=== PATIENT | male | born 2000 | race African-American/Black ===

== ENCOUNTER 2022-12-31 13:24 | Emergency (ER) | payer OTHER ==
[~2022-12-31] VITALS: Ht 193 cm; Wt 100.0 kg
[2022-12-31] MEDS ORDERED: LORAZEPAM 2MG/ML CPJ IM ONE (14:00)
[2022-12-31] MEDS ORDERED: HALOPERIDOL LACTATE 5MG/ML VIAL IM ONE (14:00)
[2022-12-31 16:04] LABS: BASOPHILS % 1.1 % (0.0-2.0); EOSINOPHILS % 1.3 % (0.0-5.0); HEMATOCRIT. 44.3 % (42.0-52.0); HEMOGLOBIN. 15.1 g/dL (14.0-18.0); LYMPHOCYTES % 26.2 % (20.0-50.0); MEAN CORPUSCULAR HEMOGLOBIN 29.4 pg (28.0-32.0); MEAN CORPUSCULAR VOLUME 86.2 fL (80.0-94.0); MEAN PLATELET VOLUME 9.2 fl (7.4-10.4); MONOCYTES % 10.9 % (2.0-8.0); NEUTROPHILS % 60.5 % (40.0-76.0); PLATELET 180 x1000/uL (130-400); RED BLOOD CELL COUNT 5.14 mill/uL (4.7-6.1); RED CELL DISTRIBUTION WIDTH 14.2 % (11.6-14.6)
[2022-12-31 16:14] LABS: CHLORIDE 102 mEq/L (98-107)
[2022-12-31 16:29] LABS: ETHANOL BLOOD < 10 mg/dL
[2023-01-01 01:24] LABS: CLARITY URINE TURBID (CLEAR); COLOR URINE YELLOW (YELLOW); KETONES URINE NEGATIVE (NEGATIVE); LEUKOCYTE ESTERASE URINE TRACE (NEGATIVE); NITRITE URINE NEGATIVE (NEGATIVE); OCCULT BLOOD URINE NEGATIVE (NEGATIVE); PROTEIN URINE NEGATIVE (NEGATIVE)
[2023-01-01 02:36] LABS: *AMPHETAMINES SCREEN URINE NEGATIVE (NEGATIVE); *BARBITURATES SCREEN URINE NEGATIVE (NEGATIVE); *BENZODIAZEPINES SCREEN URINE NEGATIVE (NEGATIVE); *COCAINE SCREEN URINE NEGATIVE (NEGATIVE); CANNABINOID URINE SCREEN NEGATIVE (NEGATIVE); METHADONE URINE SCREEN NEGATIVE (NEGATIVE); OPIATES URINE SCREEN NEGATIVE (NEGATIVE); PHENCYCLIDINE URINE SCREEN NEGATIVE (NEGATIVE)
[2023-01-01] MEDS ORDERED: OLANZAPINE 10 MG/VIAL IM ONE ×3 (04:15→20:30)
[2023-01-01] MEDS ORDERED: LORAZEPAM 2MG/ML CPJ IM STA (12:36)
[2023-01-02] MEDS ORDERED: OLANZAPINE 10 MG/VIAL IM ONE ×2 (05:15→08:45)
[2023-01-02] MEDS ORDERED: LORAZEPAM 2MG/ML CPJ IM STA (08:42)
[2023-01-02] MEDS ORDERED: HALOPERIDOL LACTATE 5MG/ML VIAL IM ONE (15:45)
[2023-01-02] MEDS ORDERED: LORAZEPAM 2MG/ML CPJ IM ONE (15:45)
[2023-01-02] MEDS ORDERED: OLANZAPINE 5MG TABLET ODT PO SCH (17:00)
[2023-01-02] MEDS ORDERED: ZIPRASIDONE MESYLATE 20MG/VIAL IM ONE (19:00)
[2023-01-02 22:30] VITALS: BP 130/70
== END 2023-01-03 00:28 ==
LOC: ER 13:24
DX: F29 Unspecified psychosis not due to a substance or known physiological condition (principal); Z20.822 Contact with and (suspected) exposure to COVID-19
CPT/HCPCS: 36415; 80053; 80305; 80307; 80320; 80329; 81003; 82962; 85025; 87426; 96372; 99285; C9803; J1630; J2060; J3486; J3490; Z7610; G0480